=== PATIENT | female | born 1960 ===

== ENCOUNTER 2019-02-07 10:01 | Outpatient (REF) | payer BC, SELFPAY ==
[2019-02-07 22:37] LABS: Abs Immature Grans 0.03 k/cumm (0.0-0.09); Absolute Basophil Count 0.03 k/cumm (0.0-0.2); Absolute Eosinophil Count 0.08 k/cumm (0.0-0.7); Absolute Lymphocyte Count 0.98 k/cumm (1.2-3.4); Absolute Monocyte Count 0.64 k/cumm (0.11-0.7); Basophils % 0.5; Eosinophils % 1.3; HCT 37.4 % (36.0-46.0); HGB 11.9 g/dL (12.0-15.5); Immature Grans % 0.5; Lymphocytes % 16.4; Mean Corp. HGB Concentration 31.8 g/dL (32.0-36.0); Mean Corpuscular Hemoglobin 30.1 pg (27.0-33.0); Mean Corpuscular Volume 94.7 fL (80-95); Mean Platelet Volume 9.6 fL (8.0-11.0); Monocytes % 10.7; Neutrophils % 70.6; Platelet Count 423 x1000/uL (130-400); RBC 3.95 m/cumm (4.00-5.20); RBC Distribution Width 12.8 % (11.7-14.6); White Blood Cell Count 5.96 k/cumm (4.4-10.8)
[2019-02-07 22:49] LABS: ALT 73 U/L (14-59); AST 49 U/L (15-37); Albumin 3.7 g/dL (3.4-5.0); Alkaline Phosphatase 97 U/L (46-116); Anion Gap 7.1 mmol/L (3-11); BUN 19 mg/dL (7-18); Bilirubin, Total 0.4 mg/dL (0.2-1.0); CO2 28.9 mmol/L (21.0-32.0); CREATININE 0.56 mg/dL (0.55-1.02); Calcium 9.1 mg/dL (8.5-10.1); Chloride 101 mmol/L (98-107); Creatine Kinase 51 U/L (26-192); Glucose 90 mg/dL (74-106); Sodium 137 mmol/L (136-145); Total Protein 7.5 g/dL (6.4-8.2)
== END 2019-02-07 10:21 ==
LOC: NCHCN 10:01
PROVIDERS: PCP Family Medicine; Visit Provider Family Medicine
DX: M79.652 Pain in left thigh (principal); R25.2 Cramp and spasm
CPT/HCPCS: 80053; 82550; 85025

== ENCOUNTER 2019-03-01 09:03 | Outpatient (REF) | payer BC, SELFPAY ==
[2019-03-01 21:16] LABS: Abs Immature Grans 0.02 k/cumm (0.0-0.09); Absolute Basophil Count 0.03 k/cumm (0.0-0.2); Absolute Eosinophil Count 0.14 k/cumm (0.0-0.7); Absolute Lymphocyte Count 1.02 k/cumm (1.2-3.4); Absolute Monocyte Count 0.45 k/cumm (0.11-0.7); Absolute Neutrophil Count 2.61 k/cumm (1.2-6.7); Basophils % 0.7; Eosinophils % 3.3; HCT 38.9 % (36.0-46.0); HGB 12.7 g/dL (12.0-15.5); Immature Grans % 0.5; Lymphocytes % 23.9; Mean Corp. HGB Concentration 32.6 g/dL (32.0-36.0); Mean Corpuscular Hemoglobin 30.4 pg (27.0-33.0); Mean Corpuscular Volume 93.1 fL (80-95); Mean Platelet Volume 9.9 fL (8.0-11.0); Monocytes % 10.5; Neutrophils % 61.1; Platelet Count 238 x1000/uL (130-400); RBC 4.18 m/cumm (4.00-5.20); RBC Distribution Width 12.3 % (11.7-14.6); White Blood Cell Count 4.27 k/cumm (4.4-10.8)
[2019-03-01 21:21] LABS: ALT 30 U/L (14-59); AST 26 U/L (15-37); Magnesium 1.8 mg/dL (1.8-2.4)
== END 2019-03-01 09:23 ==
LOC: NCHCN 09:03
PROVIDERS: PCP Family Medicine; Visit Provider Family Medicine
DX: D64.89 Other specified anemias (principal); R94.5 Abnormal results of liver function studies; Z96.652 Presence of left artificial knee joint; R25.2 Cramp and spasm
CPT/HCPCS: 83735; 84450; 84460; 85025

== ENCOUNTER 2019-12-03 08:47 | Outpatient (REF) | payer OTHER, SELFPAY ==
[2019-12-03 22:02] LABS: Calculated LDL 136 mg/dL (<100); Cholesterol 217 mg/dL (<200); HDL Cholesterol 66 mg/dL (40-60); Triglyceride 77 mg/dL (<150)
== END 2019-12-03 09:07 ==
LOC: NCHCN 08:47
PROVIDERS: PCP Family Medicine; Visit Provider Family Medicine
DX: I83.90 Asymptomatic varicose veins of unspecified lower extremity (principal); E78.89 Other lipoprotein metabolism disorders
CPT/HCPCS: 80061

== ENCOUNTER 2019-12-17 19:53 | Outpatient (REF) | payer OTHER, SELFPAY | END 2019-12-17 20:13 | LOC: NCHCN 19:53 | PROVIDERS: PCP Family Medicine; Visit Provider Family Medicine | DX: N39.0 Urinary tract infection, site not specified (principal) | CPT/HCPCS: 87077; 87086; 87186 ==